=== PATIENT | male | born 1960 | race Caucasian/White ===

== ENCOUNTER 2017-12-04 19:05 | Emergency (ER) | payer BC ==
[~2017-12-04] VITALS: Ht 195.6 cm; Wt 95.3 kg
[2017-12-04 19:05] VITALS: BP_SYST 165
[2017-12-04 20:15] LABS: BILIRUBIN,URINE NEGATIVE (NEGATIVE); BLOOD, URINE NEGATIVE (NEGATIVE); CLARITY/URINE CLEAR (CLEAR); COLOR,URINE YELLOW (YELLOW); GLUCOSE,URINE NEGATIVE (NEGATIVE); KETONES,URINE NEGATIVE (NEGATIVE); LEUKOCYTE ESTERASE ,URINE NEGATIVE (NEGATIVE); NITRITE, URINE NEGATIVE (NEGATIVE); PH,URINE 5.5 (5.0-8.0); PROTEIN URINE NEGATIVE (NEGATIVE); UROBILINOGEN,URINE 0.2 (0.2-1.0)
[2017-12-04 20:29] LABS: HEMOGLOBIN 14.1 g/dL (14.0-18.0); WHITE BLOOD COUNT (AUTO) 11.1 K/uL (4.8-10.8)
[2017-12-04 20:31] LABS: BARBITURATE, URINE NEGATIVE (NEG <=200); BENZODIAZEPINE, URINE NEGATIVE (NEG <=150); CANNABINOID, URINE NEGATIVE (NEG <=50); COCAINE, URINE NEGATIVE (NEG <=150); METHAMPHETAMINES SCREEN,URINE NEGATIVE (NEG <=500); OPIATE, URINE NEGATIVE (NEG <=100); PHENCYCLIDINE SCREEN,URINE NEGATIVE (NEG <=25); UR TRICYCLIC ANTIDEPRESSANTS NEGATIVE (NEG <=300); URINE AMPHETAMINE NEGATIVE (NEG <=500); URINE METHADONE NEGATIVE (NEG <=200); URINE OXYCODONE SCREEN NEGATIVE (NEG <=100); URINE PROPOXYPHENE SCREEN NEGATIVE (NEG <=300)
[2017-12-04 20:33] LABS: BASOPHILS # (AUTO) 0.1 K/uL (0.0-0.2); BASOPHILS % (AUTO) 0.7 % (0.0-2.0); EOSINOPHILS # (AUTO) 0.2 K/uL (0.0-0.4); EOSINOPHILS % (AUTO) 1.9 % (0.0-4.0); HEMATOCRIT 41.5 % (36-54); LYMPHOCYTES # (AUTO) 2.4 K/uL (1.0-5.5); MEAN CORPUSCULAR HEMOGLOBIN 31 pg (27-31); MEAN CORPUSCULAR HGB CONC 34 % (32-36); MEAN CORPUSCULAR VOLUME 92 fL (79.0-98.0); MONOCYTES # (AUTO) 0.7 K/uL (0.0-1.0); MONOCYTES % (AUTO) 6.4 % (1.7-9.3); NEUTROPHILS # (AUTO) 7.7 K/uL (1.8-7.7); PLATELET COUNT (AUTO) 337 K/uL (130-430); RED BLOOD CELL COUNT(AUTO) 4.51 MIL/uL (4.2-6.2)
[2017-12-04 20:42] LABS: ANION GAP 4 (5-15); CALCIUM 9.4 mg/dL (8.4-11.0); CHLORIDE 107 mmol/L (98-107); CREATININE 1.22 mg/dL (0.55-1.30); GLUCOSE 113 mg/dL (70-99); SODIUM SERUM 139 mmol/L (136-145); UREA NITROGEN, BLOOD 12 mg/dL (8-21)
[2017-12-04 20:46] LABS: GFR AFRICAN AMERICAN 78 mL/min (>90)
[2017-12-04] MEDS ORDERED: DESV50TA4 PO (20:48)
[2017-12-04] MEDS ORDERED: METF-303 PO (20:48)
[2017-12-04] MEDS ORDERED: ARIP5TAB10 PO (20:48)
[2017-12-04] MEDS ORDERED: MIRT15TA3 PO (20:48)
[2017-12-04] MEDS ORDERED: LOSA25TA11 PO (20:48)
[2017-12-04] MEDS ORDERED: MULT-1117 (20:48)
[2017-12-04] MEDS ORDERED: LAMO5TAB3 PO (20:48)
[2017-12-04] MEDS ORDERED: NEU300 PO (20:48)
[2017-12-04] MEDS ORDERED: LEVO175T2 PO (20:48)
[2017-12-04 20:49] LABS: ALANINE AMINOTRANSFERASE 32 U/L (12-78); ALBUMIN 3.9 g/dL (3.4-4.8); ALCOHOL, BLOOD < 3 mg/dL (<10); ASPARTATE AMINOTRANSFERASE 23 U/L (10-37); TOTAL BILIRUBIN 0.1 mg/dL (0.0-1.0)
[2017-12-04] MEDS ORDERED: MORPHINE SULFATE 10 MG/ML VIAL ONE (21:02)
[2017-12-04 23:02] VITALS: BP_SYST 129
== END 2017-12-04 23:00 | disposition home or self-care (01) ==
LOC: SED 19:05
DX: R41.3 Other amnesia (principal); I10 Essential (primary) hypertension; R51 Headache; Z79.899 Other long term (current) drug therapy; Z98.890 Other specified postprocedural states
CPT/HCPCS: 36415; 70450; 80053; 80307; 81003; 84484; 85025; 93005; 99285; G0482; J2270